=== PATIENT | male | born 1945 | race Hispanic/Latino ===

== ENCOUNTER 2024-01-04 09:29 | Emergency (ER) | payer MEDICARE ==
[~2024-01-04] VITALS: Ht 165.1 cm; Wt 63.0 kg
[~2024-01-04 09:29] MED LIST: ATOR40TA71 PO
[2024-01-04 09:47] LABS: APPEARANCE,URINE CLEAR (CLEAR); BILIRUBIN,URINE NEGATIVE (NEGATIVE); COLOR,URINE YELLOW (YELLOW); GLUCOSE, URINE (UA) NEGATIVE (NEGATIVE); KETONES,URINE NEGATIVE (NEGATIVE); LEUKOCYTE ESTERASE ,URINE 250 Leu/uL (NEGATIVE); NITRATE,URINE NEGATIVE (NEGATIVE); OCCULT BLOOD,URINE NEGATIVE (NEGATIVE); PROTEIN,URINE 20 mg/dL (NEGATIVE); UROBILINOGEN,URINE 0.2 mg/dL (0.2-1.0)
[2024-01-04 09:51] LABS: ADD UA MICROSCOPIC YES
[2024-01-04 09:55] LABS: BACTERIA,URINE RARE /HPF (None Seen); MUCUS,URINE FEW LPF (None Seen); SQUAMOUS EPITHELIAL CELL,UR FEW /HPF (0-2)
[2024-01-04 10:04] LABS: BASOPHILS # (AUTO) 0.05 K/uL (0.00-0.20); BASOPHILS % (AUTO) 0.5 % (0.0-5.0); EOSINOPHILS # (AUTO) 0.66 K/uL (0.00-0.70); EOSINOPHILS % (AUTO) 7.1 % (0.0-8.0); HEMATOCRIT 37.2 % (42-54); IMMATURE GRANULOCYTE ABSOLUTE 0.02 K/uL (0-1); LYMPHOCYTES # (AUTO) 1.5 K/uL (1.0-4.8); LYMPHOCYTES % (AUTO) 16.3 % (21.0-51.0); MEAN CORPUSCULAR HEMOGLOBIN 31.5 pg (27.0-33.0); MEAN CORPUSCULAR HGB CONC 34.4 g/dL (32.0-36.0); MEAN CORPUSCULAR VOLUME 91.6 fL (79-99); MONOCYTES # (AUTO) 0.9 K/uL (0.1-1.0); MONOCYTES % (AUTO) 9.8 % (3.0-13.0); NEUTROPHILS # (AUTO) 6.1 K/uL (1.8-7.7); NEUTROPHILS % (AUTO) 66.1 % (40.0-77.0); PLATELET COUNT (AUTO) 200 K/uL (130-400); RED BLOOD CELL COUNT(AUTO) 4.06 MIL/uL (4.50-6.20); RED CELL DISTRIBUTION WIDTH 13.2 % (11.0-15.5); WHITE BLOOD COUNT (AUTO) 9.3 K/uL (4.8-10.8)
[2024-01-04 10:27] LABS: BILIRUBIN,TOTAL 0.6 mg/dL (0.2-1.0); CREATININE 1.2 mg/dL (0.5-1.3); POTASSIUM 3.6 mmol/L (3.5-5.1); TOTAL PROTEIN, SERUM 7.4 g/dL (6.0-8.3)
[2024-01-04] MEDS: NITROGLYCERIN 1GM OINT 1 INCH/1GM TD ONE ×2 (12:33→12:34)
[2024-01-04] MEDS: ACETAMINOPHEN 325 MG TAB PO ONE (12:34)
[2024-01-04 13:59] VITALS: BP 167/72; PULSE 51; RESP 14; O2SAT 98
[2024-01-04] MEDS ORDERED: MACR100 PO (14:11)
[2024-01-04] MEDS: CEFTRIAXONE 1G VIAL IVPB ONE (14:13)
== END 2024-01-04 14:39 | disposition home or self-care (01) ==
LOC: EDH 09:29
DX: N39.0 Urinary tract infection, site not specified (principal); K57.90 Diverticulosis of intestine, part unspecified, without perforation or abscess without bleeding
CPT/HCPCS: 99285; 74176; 96374; 76705; 80053; 83690; 85025; 87088; 81001; 36415; J0696

== ENCOUNTER 2024-01-06 19:58 | Emergency (ER) | payer MEDICARE ==
[~2024-01-06] VITALS: Ht 165.1 cm; Wt 55.8 kg
[~2024-01-06 19:58] MED LIST changes: +MACR100 PO
[2024-01-06 21:26] LABS: BASOPHILS # (AUTO) 0.03 K/uL (0.00-0.20); BASOPHILS % (AUTO) 0.5 % (0.0-5.0); EOSINOPHILS # (AUTO) 0.41 K/uL (0.00-0.70); EOSINOPHILS % (AUTO) 6.8 % (0.0-8.0); HEMATOCRIT 34.9 % (42-54); IMMATURE GRANULOCYTE ABSOLUTE 0.02 K/uL (0-1); LYMPHOCYTES # (AUTO) 2.1 K/uL (1.0-4.8); LYMPHOCYTES % (AUTO) 35.4 % (21.0-51.0); MEAN CORPUSCULAR HEMOGLOBIN 31.6 pg (27.0-33.0); MEAN CORPUSCULAR HGB CONC 33.5 g/dL (32.0-36.0); MEAN CORPUSCULAR VOLUME 94.3 fL (79-99); MONOCYTES # (AUTO) 0.7 K/uL (0.1-1.0); MONOCYTES % (AUTO) 11.6 % (3.0-13.0); NEUTROPHILS # (AUTO) 2.7 K/uL (1.8-7.7); NEUTROPHILS % (AUTO) 45.4 % (40.0-77.0); PLATELET COUNT (AUTO) 192 K/uL (130-400); RED CELL DISTRIBUTION WIDTH 13.3 % (11.0-15.5)
[2024-01-06 21:35] LABS: CREATININE 1.2 mg/dL (0.5-1.3); POTASSIUM 3.9 mmol/L (3.5-5.1)
[2024-01-06 21:39] LABS: BILIRUBIN,TOTAL 0.3 mg/dL (0.2-1.0)
[2024-01-06] MEDS: LACTATED RINGERS 1000ML 1,000 ML IV ONE (22:12)
[2024-01-06] MEDS: MORPHINE 2 MG SYG IVP ONE (22:12)
[2024-01-06 23:03] VITALS: BP 193/76; PULSE 52; RESP 16; O2SAT 98
[2024-01-06] MEDS ORDERED: IBUP-1493 PO (23:11)
== END 2024-01-06 23:25 | disposition home or self-care (01) ==
LOC: EDH 19:58
DX: R10.31 Right lower quadrant pain (principal)
CPT/HCPCS: 99284; 96374; 71045; 96361; 82150; 80053; 83690; 85025; 36415; J7120; J2270

== ENCOUNTER 2024-05-14 14:39 | Emergency (ER) | payer MEDICARE ==
[~2024-05-14] VITALS: Ht 167.6 cm; Wt 58.1 kg
[~2024-05-14 14:39] MED LIST changes: +ATOR40TA69 PO; -ATOR40TA71 PO; +DUTA1CPM4 PO; +LOSA1TAB37 PO; -MACR100 PO; +PANT40TA54 PO
[2024-05-14 16:21] LABS: BASOPHILS # (AUTO) 0.02 K/uL (0.00-0.20); BASOPHILS % (AUTO) 0.3 % (0.0-5.0); EOSINOPHILS # (AUTO) 0.15 K/uL (0.00-0.70); EOSINOPHILS % (AUTO) 2.2 % (0.0-8.0); HEMATOCRIT 29.9 % (42-54); IMMATURE GRANULOCYTE ABSOLUTE 0.02 K/uL (0-1); LYMPHOCYTES # (AUTO) 1.7 K/uL (1.0-4.8); LYMPHOCYTES % (AUTO) 25.7 % (21.0-51.0); MEAN CORPUSCULAR HEMOGLOBIN 31.7 pg (27.0-33.0); MEAN CORPUSCULAR HGB CONC 32.8 g/dL (32.0-36.0); MEAN CORPUSCULAR VOLUME 96.8 fL (79-99); MONOCYTES # (AUTO) 0.6 K/uL (0.1-1.0); MONOCYTES % (AUTO) 8.5 % (3.0-13.0); NEUTROPHILS # (AUTO) 4.3 K/uL (1.8-7.7); PLATELET COUNT (AUTO) 202 K/uL (130-400); RED BLOOD CELL COUNT(AUTO) 3.09 MIL/uL (4.50-6.20); RED CELL DISTRIBUTION WIDTH 13.9 % (11.0-15.5); WHITE BLOOD COUNT (AUTO) 6.7 K/uL (4.8-10.8)
[2024-05-14 16:31] LABS: CREATININE 1.7 mg/dL (0.5-1.3); POTASSIUM 3.8 mmol/L (3.5-5.1)
[2024-05-14] MEDS: LACTATED RINGERS 1000ML 1,000 ML IV ONE (16:32)
[2024-05-14 16:41] LABS: APPEARANCE,URINE TURBID (CLEAR); BILIRUBIN,URINE NEGATIVE (NEGATIVE); COLOR,URINE YELLOW (YELLOW); GLUCOSE, URINE (UA) NEGATIVE (NEGATIVE); KETONES,URINE NEGATIVE (NEGATIVE); LEUKOCYTE ESTERASE ,URINE 500 Leu/uL (NEGATIVE); NITRATE,URINE 2+ (NEGATIVE); OCCULT BLOOD,URINE MODERATE (NEGATIVE); PH,URINE 5.5 (5.0-8.0); PROTEIN,URINE 50 mg/dL (NEGATIVE)
[2024-05-14 16:42] LABS: ADD UA MICROSCOPIC YES
[2024-05-14 16:46] LABS: BACTERIA,URINE MANY /HPF (None Seen); MUCUS,URINE MOD LPF (None Seen); RBC,URINE 26-50 /HPF (0-1); WBC CLUMP FEW /HPF (0-1); WBC,URINE TNTC /HPF (0-1)
[2024-05-14 16:56] LABS: SARS-CoV-2, RNA, NAAT NEGATIVE SARS CoV-2 (NEGATIVE)
[2024-05-14] MEDS: 0.9%NACL 1000ML 1,000 ML IV ONE (17:06)
[2024-05-14] MEDS: CEFTRIAXONE 2GM VIAL IVPB ONE (17:06)
[2024-05-14] MEDS ORDERED: IOHEXOL-350 75 ML VIAL IV ONE (17:15)
[2024-05-14 17:51] VITALS: BP 126/60; PULSE 77; RESP 20; TEMP 98.6; O2SAT 99
[2024-05-14] MEDS ORDERED: CEPH500B PO (18:27)
== END 2024-05-14 18:33 | disposition home or self-care (01) ==
LOC: EDH 14:39
DX: N39.0 Urinary tract infection, site not specified (principal); K57.30 Diverticulosis of large intestine without perforation or abscess without bleeding; K59.00 Constipation, unspecified; E78.00 Pure hypercholesterolemia, unspecified; Z20.822 Contact with and (suspected) exposure to COVID-19; Z79.899 Other long term (current) drug therapy; Z90.49 Acquired absence of other specified parts of digestive tract; Z98.890 Other specified postprocedural states
CPT/HCPCS: 99285; 74177; 96365; 87635; 84484; 80048; 85025; 87086 ×2; 87186; 81001; 36415; 93005; J7120; J7030; J0696; Q9967